=== PATIENT | female | born 1970 | race Two or more races ===

== ENCOUNTER 2021-10-16 13:18 | Emergency (ER) | payer MEDICAID ==
[~2021-10-16] VITALS: Ht 152.4 cm; Wt 90.3 kg
[2021-10-16 13:27] VITALS: BP 128/90
--- NOTE | 2021-10-16 13:30 | NUR ---
pt being assessed by medical student in [place]
[2021-10-16] MEDS ORDERED: NACL 0.9% 1,000 ML IV ONE (13:40)
[2021-10-16 14:06] LABS: BASOPHILS # (AUTO) 0.1 K/uL (0.00-0.22); BASOPHILS % (AUTO) 1.2 % (0.0-2.0); EOSINOPHILS # (AUTO) 0.1 K/uL (0-0.4); EOSINOPHILS % (AUTO) 1.3 % (0.0-4.0); HEMOGLOBIN 14.9 g/dL (12.0-16.0); LYMPHOCYTES # (AUTO) 2.1 K/uL (2.5-16.5); LYMPHOCYTES % (AUTO) 28.3 % (20.5-51.1); MEAN CORPUSCULAR HEMOGLOBIN 33 pg (27-31); MEAN CORPUSCULAR HGB CONC 35 g/dL (33-37); MONOCYTES # (AUTO) 0.4 K/uL (0.8-1.0); MONOCYTES % (AUTO) 5.7 % (1.7-9.3); NEUTROPHILS # (AUTO) 4.8 K/uL (1.8-7.7); NEUTROPHILS % (AUTO) 63.5 % (42.2-75.2); PLATELET COUNT (AUTO) 333 K/uL (140-450); RED BLOOD CELL COUNT(AUTO) 4.53 MIL/uL (4.20-5.40); RED CELL DISTRIBUTION WIDTH 12.9 % (11.6-13.7); WHITE BLOOD COUNT (AUTO) 7.6 K/uL (4.8-10.8)
--- NOTE | 2021-10-16 14:12 | NUR ---
51 y/o female, c/o throat and abd burning, general malaise, with high glucose for 3 days, states she has been taking her insulin every day. pt was at urgent care with glucose of 554, glucose now at 475. denies hematuria, dysuria, pelvic pain, urinary frequency and retention at this time. skin is pink/warm/dry. a&o x4 ambulates with assist due to general malaise. lungs clear bl, heart rate even and regular. pt denies any fever, cp, sob, or cough at this time. denies anyone sick in [facility] with same symptoms at this time. pt states pain is 10/10 at this time. patient. Ermd made aware of pt. pt states she has been going through a lot of at home stressors and states her medications for dm2 have not been working despite being complaint with them. abd pain worsens with eating, abd burning radiates up throat. pmh: ulcers, dm2, asthma, htn nka
[2021-10-16 14:55] LABS: ANION GAP 18.2 (8-16); CARBON DIOXIDE 23.5 mmol/L (21-32); CREATININE 0.8 mg/dL (0.6-1.3); POTASSIUM 4.7 mmol/L (3.5-5.1); TOTAL BILIRUBIN 0.5 mg/dL (0.0-1.0)
[2021-10-16] MEDS ORDERED: LACTATED RINGERS 1,000 ML IV ONE (16:35)
--- NOTE | 2021-10-16 17:32 | NUR ---
PT AMBULATED TO RESTROOM WITH STEADY GAIT
--- NOTE | 2021-10-16 17:50 | NUR ---
Patient appears to be resting comfortably in bed. Vital Signs within normal limits. Respirations even and unlabored. PT PROVIDED WITH WARM BLANKET
--- NOTE | 2021-10-16 18:16 | NUR ---
PT PROVIDED WITH URINE CUP BEDSIDE
[2021-10-16] MEDS ORDERED: INSULIN LANTUS 100 UNITS/ML 10 ML VIAL SUBQ ONE (18:25)
[2021-10-16] MEDS ORDERED: FAMOTIDINE 20 MG/2 ML VIAL IVP ONE (18:25)
[2021-10-16] MEDS ORDERED: ALUMINUM HYD/MAG/SIMETHICONE 30 ML UDC PO ONE (18:25)
[2021-10-16] MEDS ORDERED: ONDA-188 SL (19:05)
[2021-10-16] MEDS ORDERED: FAMO-90 PO (19:05)
[2021-10-16 19:24] VITALS: BP 128/80
--- NOTE | 2021-10-16 19:25 | NUR ---
Patient discharged with v/s stable. Written and verbal after care instructions given and explained. Patient alert, oriented and verbalized understanding of instructions. Ambulatory with and daughter to car. All questions addressed prior to discharge. ID band removed. Patient advised to follow up with PMD. Rx of famotidine, zofran (sent) given. Patient educated on indication of medication including possible reaction and side effects. Opportunity to ask questions provided and answered.
--- NOTE | 2021-10-23 14:53 | NUR ---
LATE ENTRY- NORMAL SALINE IV DISCONTINUED AT 192.
== END 2021-10-16 19:25 | disposition home or self-care (01) ==
LOC: MED 13:18
DX: K85.90 Acute pancreatitis without necrosis or infection, unspecified (principal); E11.65 Type 2 diabetes mellitus with hyperglycemia; I10 Essential (primary) hypertension; E78.5 Hyperlipidemia, unspecified; J45.909 Unspecified asthma, uncomplicated; Z98.890 Other specified postprocedural states; Z79.899 Other long term (current) drug therapy
CPT/HCPCS: 36415; 76705; 80053; 82009; 83690; 84484; 85025; 93005; 96360; 96361; 99285; J1815; J7030; J7120; Q0092

== ENCOUNTER 2022-09-17 14:46 | Emergency (ER) | payer MEDICAID ==
[~2022-09-17] VITALS: Ht 170.2 cm; Wt 63.5 kg
[~2022-09-17 14:46] MED LIST: FAMO-90 PO; ONDA-188 SL
--- NOTE | 2022-09-17 14:51 | NUR ---
PATIENT BIBA TO BED 7.
[2022-09-17 14:54] VITALS: BP 130/90
--- NOTE | 2022-09-17 15:02 | NUR ---
52 F PATIENT PRESENTS TO ED WITH HIGH BLOOD SUGAR. PT STATES FEELS DIZZY THIS MORNING AND WAS ABOUT TO FAINT. DENIES N/V/D; SKIN IS PINK/WARM/DRY; AAOX4 WITH EVEN AND STEADY GAIT; LUNGS CLEAR BL; HR EVEN AND REGULAR; PT DENIES ANY FEVER, CP, SOB, OR COUGH AT THIS TIME; PATIENT STATES HEADACHE OF 3/10 AT THIS TIME; VSS; PATIENT POSITIONED FOR COMFORT; HOB ELEVATED; BEDRAILS UP X2; BED DOWN. ER MD MADE AWARE OF PT STATUS. HX: DM, HTN, ASTHMA NKA MEDS: INSULIN AND METFORMIN
[2022-09-17] MEDS ORDERED: NACL 0.9% 1,000 ML IV ONE ×2 (15:05)
[2022-09-17 15:17] LABS: BASOPHILS # (AUTO) 0.1 K/uL (0.00-0.22); BASOPHILS % (AUTO) 0.6 % (0.0-2.0); EOSINOPHILS % (AUTO) 0.4 % (0.0-4.0); HEMATOCRIT 41.1 % (36-48); HEMOGLOBIN 13.9 g/dL (12.0-16.0); MEAN CORPUSCULAR HEMOGLOBIN 33 pg (27-31); MEAN CORPUSCULAR HGB CONC 34 g/dL (33-37); MEAN CORPUSCULAR VOLUME 97.4 fL (80-94); MONOCYTES # (AUTO) 0.5 K/uL (0.8-1.0); MONOCYTES % (AUTO) 5.2 % (1.7-9.3); NEUTROPHILS # (AUTO) 6.3 K/uL (1.8-7.7); NEUTROPHILS % (AUTO) 70.8 % (42.2-75.2); PLATELET COUNT (AUTO) 341 K/uL (140-450); RED BLOOD CELL COUNT(AUTO) 4.22 MIL/uL (4.20-5.40); RED CELL DISTRIBUTION WIDTH 12.6 % (11.6-13.7); WHITE BLOOD COUNT (AUTO) 8.9 K/uL (4.8-10.8)
[2022-09-17 15:48] LABS: ACETONE, SERUM SMALL (NEGATIVE)
[2022-09-17] MEDS ORDERED: KETOROLAC 15 MG/ML VIAL IVP ONE (15:50)
[2022-09-17 16:02] LABS: ALBUMIN 3.1 g/dL (3.4-5.0); ANION GAP 18.2 (8-16); ASPARTATE AMINOTRANSFERASE 10 U/L (15-37); CARBON DIOXIDE 23.7 mmol/L (21-32); CHLORIDE 97 mmol/L (98-107); CREATININE 0.9 mg/dL (0.6-1.3); GFR ARICAN-AMERICAN 84 mL/min (>90); POTASSIUM 4.9 mmol/L (3.5-5.1); SODIUM SERUM 134 mmol/L (136-145); TOTAL BILIRUBIN 0.4 mg/dL (0.0-1.0); UREA NITROGEN, BLOOD 20 mg/dL (7-18)
[2022-09-17 16:10] LABS: GLUCOSE 561 mg/dL (74-106)
[2022-09-17] MEDS ORDERED: INSULIN REGULAR, HUMAN 100 UNIT/ML VIAL SUBQ ONE (16:55)
--- NOTE | 2022-09-17 18:30 | NUR ---
ER AT BEDSIDE
[2022-09-17 18:50] VITALS: BP 144/51
--- NOTE | 2022-09-17 18:52 | NUR ---
ENDORSED DISCHARGE INSTRUCTIONS TO PATIENT. PT VERBALIZED UNDERSTANDING AND SIGNED DISCHARGE FORMS. AWAITING FOR FAMILY TO PICK PATIENT UP.
[2022-09-17 19:04] LABS: APPEARANCE,URINE CLEAR (CLEAR); BILIRUBIN,URINE NEGATIVE (NEGATIVE); BLOOD, URINE NEGATIVE (NEGATIVE); COLOR,URINE YELLOW (YELLOW); LEUKOCYTE ESTERASE ,URINE NEGATIVE (NEGATIVE); NITRITE, URINE NEGATIVE (NEGATIVE); PH,URINE 5.5 (5.0-9.0); UGLUCOSE 3+ (NEGATIVE)
--- NOTE | 2022-09-17 19:28 | NUR ---
PATIENT DISCHARGED OFF THE UNIT. PT WAS STABLE
== END 2022-09-17 19:28 | disposition home or self-care (01) ==
LOC: MED 14:46
DX: E11.65 Type 2 diabetes mellitus with hyperglycemia (principal); R42 Dizziness and giddiness; J45.909 Unspecified asthma, uncomplicated; I10 Essential (primary) hypertension; Z91.14 Patient's other noncompliance with medication regimen; Z89.029 Acquired absence of unspecified finger(s); Z79.899 Other long term (current) drug therapy
CPT/HCPCS: 36415; 80053; 81003; 82009; 85025; 96361; 96365; 96372; 99284; J1815; J1885

== ENCOUNTER 2023-09-16 12:23 | Inpatient (IN) | payer MEDICAID ==
[2023-09-16] VITALS (8 sets, daily range): BP systolic 136–146; BP diastolic 69–84; PULSE 74–102; RESP 22–29; TEMP 95.5–97.8; O2SAT 95–100
[~2023-09-16] VITALS: Ht 165.1 cm; Wt 55.3 kg
[2023-09-16] MEDS ORDERED: NACL 0.9% 1,000 ML IV ONE ×2 (12:45→14:05)
[2023-09-16] MEDS ORDERED: PANTOPRAZOLE 40 MG INJ VIAL IVP ONE (13:20)
[2023-09-16 13:44] LABS: BASOPHILS # (AUTO) 0.1 K/uL (0.00-0.22); BASOPHILS % (AUTO) 0.5 % (0.0-2.0); EOSINOPHILS % (AUTO) 0.1 % (0.0-4.0); HEMATOCRIT 46.9 % (36-48); HEMOGLOBIN 15.4 g/dL (12.0-16.0); LYMPHOCYTES # (AUTO) 2.2 K/uL (2.5-16.5); LYMPHOCYTES % (AUTO) 14.7 % (20.5-51.1); MEAN CORPUSCULAR HEMOGLOBIN 34 pg (27-31); MEAN CORPUSCULAR HGB CONC 33 g/dL (33-37); MEAN CORPUSCULAR VOLUME 101.9 fL (80-94); MONOCYTES # (AUTO) 0.9 K/uL (0.8-1.0); MONOCYTES % (AUTO) 6.1 % (1.7-9.3); NEUTROPHILS # (AUTO) 11.5 K/uL (1.8-7.7); NEUTROPHILS % (AUTO) 78.6 % (42.2-75.2); PLATELET COUNT (AUTO) 395 K/uL (140-450); RED BLOOD CELL COUNT(AUTO) 4.61 MIL/uL (4.20-5.40); RED CELL DISTRIBUTION WIDTH 13.6 % (11.6-13.7); WHITE BLOOD COUNT (AUTO) 14.6 K/uL (4.8-10.8)
[2023-09-16 14:09] LABS: ANION GAP 34.5 (8-16); CALCIUM 10.5 mg/dL (8.5-10.1)
[2023-09-16 14:17] LABS: CARBON DIOXIDE 6.5 mmol/L (21-32)
[2023-09-16] MEDS ORDERED: INSULIN REGULAR, HUMAN 100 UNIT in NACL 0.9% 100 ML IV SCH ×6 (14:30→19:40)
[2023-09-16 14:34] LABS: BILIRUBIN,URINE 1+ (NEGATIVE); BLOOD, URINE TRACE-I (NEGATIVE); COLOR,URINE YELLOW (YELLOW); LEUKOCYTE ESTERASE ,URINE NEGATIVE (NEGATIVE); NITRITE, URINE NEGATIVE (NEGATIVE); PROTEIN,URINE 2+ (NEGATIVE); UGLUCOSE 2+ (NEGATIVE); UROBILINOGEN,URINE 0.2 EU/dL (0.2 - 1)
[2023-09-16 14:35] LABS: APPEARANCE,URINE SLIGHTLY HAZY (CLEAR)
[2023-09-16 14:48] LABS: ICTOTEST NEGATIVE (NEGATIVE)
[2023-09-16 14:50] LABS: BACTERIA,URINE FEW /HPF (None Seen); RBC,URINE 0-5 /HPF (0-5); SQUAMOUS EPITHELIAL CELL,UR 0-3 (FEW) /LPF (0-3 (FEW)); WBC,URINE 0-5 /HPF (0-5)
[2023-09-16 14:59] LABS: ALBUMIN 3.3 g/dL (3.4-5.0); BILIRUBIN,DIRECT 0.1 mg/dL (0.0-0.3); TOTAL BILIRUBIN 1.2 mg/dL (0.0-1.0); TOTAL PROTEIN, SERUM 10.1 g/dL (6.4-8.2)
[2023-09-16 15:06] LABS: FLU A ANTIGEN negative (NEGATIVE); FLU B ANTIGEN NEGATIVE (NEGATIVE)
[2023-09-16] MEDS ORDERED: ACETAMINOPHEN 325 MG TAB PO PRN (16:05)
[2023-09-16] MEDS ORDERED: MORPHINE SULFATE 2 MG/ML SYR IVP PRN (16:05)
[2023-09-16] MEDS ORDERED: ONDANSETRON 4 MG/2 ML VIAL IVP PRN (16:05)
[2023-09-16] MEDS ORDERED: HYDROcodone/APAP 5/325 MG 1 TAB TAB PO PRN (16:05)
[2023-09-16] MEDS ORDERED: LORazepam 1 MG TAB PO PRN (16:10)
[2023-09-16] MEDS ORDERED: DEXTROSE 50% 50 ML SYR IVP PRN ×2 (16:10→19:40)
[2023-09-16] MEDS: BLOOD GLUCOSE MONITORING 1 DEV DEV FS SCH ×8 (16:10→23:13)
[2023-09-16] MEDS ORDERED: POTASSIUM CHLORIDE 10 MEQ TABER PO PRN (16:15)
[2023-09-16] MEDS ORDERED: hydrALAZINE 20 MG/ML VIAL IVP PRN (16:15)
[2023-09-16] MEDS: NACL 0.9% 1,000 ML IV SCH ×3 (16:34→20:00)
[2023-09-16] MEDS ORDERED: cefTRIAXone 1,000 MG VIAL ONE (17:49)
[2023-09-16] MEDS: DEXT 5% / NACL 0.45% 1,000 ML IV SCH ×3 (19:40→23:16)
[2023-09-16] MEDS ORDERED: BLOOD GLUCOSE MONITORING 1 DEV DEV FS SCH (19:40)
[2023-09-16] MEDS: PANTOPRAZOLE 40 MG INJ VIAL IVP SCH (20:23)
[2023-09-16 21:00] LABS: CALCIUM 9.3 mg/dL (8.5-10.1); CREATININE 0.8 mg/dL (0.6-1.3); POTASSIUM 4.5 mmol/L (3.5-5.1)
[2023-09-16 21:01] LABS: PHOSPHORUS 3.1 mg/dL (2.5-4.9)
[2023-09-16 21:03] LABS: CARBON DIOXIDE 5.5 mmol/L (21-32)
[2023-09-17] VITALS (26 sets, daily range): BP systolic 115–146; BP diastolic 57–76; PULSE 60–105; RESP 13–25; TEMP 97.7–98.7; O2SAT 98–100
[2023-09-17] MEDS: BLOOD GLUCOSE MONITORING 1 DEV DEV FS SCH ×24 (00:14→23:18)
[2023-09-17 00:34] LABS: ANION GAP 23.8 (8-16); CREATININE 0.7 mg/dL (0.6-1.3); POTASSIUM 4.3 mmol/L (3.5-5.1)
[2023-09-17 00:38] LABS: CARBON DIOXIDE 6.5 mmol/L (21-32)
[2023-09-17] MEDS: NACL 0.9% 1,000 ML IV SCH ×3 (00:40→06:32)
[2023-09-17] MEDS: DEXT 5% / NACL 0.45% 1,000 ML IV SCH ×3 (00:40→08:33)
[2023-09-17 04:33] LABS: BASOPHILS % (AUTO) 0.2 % (0.0-2.0); EOSINOPHILS % (AUTO) 0.1 % (0.0-4.0); HEMATOCRIT 36.1 % (36-48); HEMOGLOBIN 12.3 g/dL (12.0-16.0); LYMPHOCYTES # (AUTO) 1.8 K/uL (2.5-16.5); LYMPHOCYTES % (AUTO) 17.2 % (20.5-51.1); MEAN CORPUSCULAR HEMOGLOBIN 33 pg (27-31); MEAN CORPUSCULAR HGB CONC 34 g/dL (33-37); MONOCYTES # (AUTO) 1.2 K/uL (0.8-1.0); MONOCYTES % (AUTO) 11.2 % (1.7-9.3); NEUTROPHILS # (AUTO) 7.4 K/uL (1.8-7.7); NEUTROPHILS % (AUTO) 71.3 % (42.2-75.2); PLATELET COUNT (AUTO) 294 K/uL (140-450); RED BLOOD CELL COUNT(AUTO) 3.73 MIL/uL (4.20-5.40); RED CELL DISTRIBUTION WIDTH 12.9 % (11.6-13.7); WHITE BLOOD COUNT (AUTO) 10.4 K/uL (4.8-10.8)
[2023-09-17 04:51] LABS: ANION GAP 18.6 (8-16); CALCIUM 8.6 mg/dL (8.5-10.1); CARBON DIOXIDE 9.8 mmol/L (21-32); CREATININE 0.6 mg/dL (0.6-1.3); POTASSIUM 3.4 mmol/L (3.5-5.1)
[2023-09-17 06:11] LABS: MAGNESIUM 1.6 mg/dL (1.8-2.4)
[2023-09-17 06:12] LABS: PHOSPHORUS 0.9 mg/dL (2.5-4.9)
[2023-09-17] MEDS ORDERED: KCL 20 MEQ IN 100 mL PREMIX 100 ML IV PRN (06:55)
[2023-09-17] MEDS ORDERED: MAG SULF 2000 MG/WATER PREMIX 50 ML IV SCH (07:50)
[2023-09-17] MEDS: PANTOPRAZOLE 40 MG INJ VIAL IVP SCH ×2 (08:35→21:01)
[2023-09-17 08:43] LABS: ANION GAP 15.4 (8-16); CALCIUM 8.5 mg/dL (8.5-10.1); CARBON DIOXIDE 11.6 mmol/L (21-32); CREATININE 0.6 mg/dL (0.6-1.3)
[2023-09-17 12:19] LABS: ANION GAP 16.4 (8-16); CALCIUM 8.4 mg/dL (8.5-10.1); CREATININE 0.6 mg/dL (0.6-1.3); POTASSIUM 3.4 mmol/L (3.5-5.1)
[2023-09-17] MEDS: POTASSIUM CHL 40 MEQ/ D5-1/2NS 1,000 ML IV SCH ×3 (12:43→22:00)
[2023-09-17] MEDS: POTASSIUM CHLORIDE 40 MEQ in NACL 0.9% 1,000 ML IV SCH (13:35)
[2023-09-17 17:28] LABS: ANION GAP 13.6 (8-16); CALCIUM 8.2 mg/dL (8.5-10.1); CARBON DIOXIDE 13.8 mmol/L (21-32); CREATININE 0.4 mg/dL (0.6-1.3); POTASSIUM 3.4 mmol/L (3.5-5.1)
[2023-09-17 17:32] LABS: MAGNESIUM 1.8 mg/dL (1.8-2.4)
[2023-09-17 17:33] LABS: PHOSPHORUS 0.6 mg/dL (2.5-4.9)
[2023-09-17] MEDS ORDERED: POTASSIUM PHOSPHATE 30 MM in NACL 0.9% 500 ML IV SCH (18:30)
[2023-09-17] MEDS ORDERED: Z-GUARD PASTE TP ONE (19:39)
[2023-09-17] MEDS ORDERED: POTASSIUM CHLORIDE IV SCH (19:40)
[2023-09-17] MEDS ORDERED: NACL 0.45% IV SCH (19:40)
[2023-09-17] MEDS ORDERED: DEXT 5% IV SCH (19:40)
[2023-09-17] MEDS ORDERED: Z-GUARD PASTE TP PRN (20:00)
[2023-09-17 21:40] LABS: CALCIUM 8.6 mg/dL (8.5-10.1); CARBON DIOXIDE 15.4 mmol/L (21-32); CREATININE 0.5 mg/dL (0.6-1.3); POTASSIUM 3.4 mmol/L (3.5-5.1)
[2023-09-17 21:45] LABS: MAGNESIUM 1.7 mg/dL (1.8-2.4)
[2023-09-17 22:14] LABS: PHOSPHORUS 0.9 mg/dL (2.5-4.9)
[2023-09-17] MEDS: MAG SULF 2000 MG/WATER PREMIX 50 ML IV PRN (23:52)
[2023-09-18] VITALS (26 sets, daily range): BP systolic 115–151; BP diastolic 47–87; PULSE 84–104; RESP 14–24; TEMP 97.5–98.7; O2SAT 97–100
[2023-09-18] MEDS: BLOOD GLUCOSE MONITORING 1 DEV DEV FS SCH ×22 (00:16→21:24)
[2023-09-18 00:33] LABS: ANION GAP 11.5 (8-16); CALCIUM 8.5 mg/dL (8.5-10.1); CARBON DIOXIDE 18.2 mmol/L (21-32); CREATININE 0.4 mg/dL (0.6-1.3); POTASSIUM 3.7 mmol/L (3.5-5.1)
[2023-09-18 00:36] LABS: MAGNESIUM 1.7 mg/dL (1.8-2.4)
[2023-09-18] MEDS: POTASSIUM CHLORIDE 40 MEQ in NACL 0.9% 1,000 ML IV SCH ×4 (00:46→18:31)
[2023-09-18] MEDS: POTASSIUM CHL 40 MEQ/ D5-1/2NS 1,000 ML IV SCH ×4 (02:05→21:35)
[2023-09-18 04:23] LABS: BASOPHILS % (AUTO) 0.5 % (0.0-2.0); HEMATOCRIT 37.2 % (36-48); HEMOGLOBIN 12.9 g/dL (12.0-16.0); LYMPHOCYTES # (AUTO) 2.2 K/uL (2.5-16.5); LYMPHOCYTES % (AUTO) 25.4 % (20.5-51.1); MEAN CORPUSCULAR HEMOGLOBIN 33 pg (27-31); MEAN CORPUSCULAR HGB CONC 35 g/dL (33-37); MEAN CORPUSCULAR VOLUME 95.6 fL (80-94); MONOCYTES % (AUTO) 11.8 % (1.7-9.3); NEUTROPHILS # (AUTO) 5.5 K/uL (1.8-7.7); NEUTROPHILS % (AUTO) 62.3 % (42.2-75.2); PLATELET COUNT (AUTO) 274 K/uL (140-450); RED BLOOD CELL COUNT(AUTO) 3.89 MIL/uL (4.20-5.40); RED CELL DISTRIBUTION WIDTH 12.5 % (11.6-13.7); WHITE BLOOD COUNT (AUTO) 8.8 K/uL (4.8-10.8)
[2023-09-18 04:47] LABS: ANION GAP 14.4 (8-16); CALCIUM 8.3 mg/dL (8.5-10.1); CARBON DIOXIDE 15.6 mmol/L (21-32); CREATININE 0.5 mg/dL (0.6-1.3)
[2023-09-18 04:52] LABS: MAGNESIUM 2.2 mg/dL (1.8-2.4); PHOSPHORUS 1.6 mg/dL (2.5-4.9)
[2023-09-18] MEDS: PANTOPRAZOLE 40 MG INJ VIAL IVP SCH ×2 (08:37→21:15)
[2023-09-18 09:35] LABS: PHOSPHORUS 1.5 mg/dL (2.5-4.9)
[2023-09-18 09:43] LABS: ANION GAP 14.4 (8-16); CALCIUM 8.2 mg/dL (8.5-10.1); CARBON DIOXIDE 15.5 mmol/L (21-32); CREATININE 0.4 mg/dL (0.6-1.3); POTASSIUM 3.9 mmol/L (3.5-5.1)
[2023-09-18] MEDS ORDERED: POTASSIUM PHOSPHATE 15 MM in NACL 0.9% 250 ML IV SCH (10:00)
[2023-09-18 14:31] LABS: MAGNESIUM 1.8 mg/dL (1.8-2.4)
[2023-09-18 14:34] LABS: ANION GAP 14.3 (8-16); CARBON DIOXIDE 17.8 mmol/L (21-32); POTASSIUM 4.1 mmol/L (3.5-5.1)
[2023-09-18 14:35] LABS: CALCIUM 8.5 mg/dL (8.5-10.1); CREATININE 0.5 mg/dL (0.6-1.3)
[2023-09-18 16:15] LABS: ANION GAP 11.1 (8-16); CALCIUM 8.3 mg/dL (8.5-10.1); CREATININE 0.5 mg/dL (0.6-1.3); POTASSIUM 4.1 mmol/L (3.5-5.1)
[2023-09-18 16:19] LABS: MAGNESIUM 1.7 mg/dL (1.8-2.4); PHOSPHORUS 1.9 mg/dL (2.5-4.9)
[2023-09-18] MEDS: MAG SULF 2000 MG/WATER PREMIX 50 ML IV PRN (17:38)
[2023-09-18 21:31] LABS: ANION GAP 12.5 (8-16); CALCIUM 8.7 mg/dL (8.5-10.1); CARBON DIOXIDE 19.6 mmol/L (21-32); CREATININE 0.5 mg/dL (0.6-1.3); POTASSIUM 4.1 mmol/L (3.5-5.1)
[2023-09-18 21:54] LABS: MAGNESIUM 2.1 mg/dL (1.8-2.4); PHOSPHORUS 1.7 mg/dL (2.5-4.9)
[2023-09-18] MEDS: NACL 0.9% 1,000 ML IV SCH (23:00)
[2023-09-19] VITALS (21 sets, daily range): BP systolic 105–172; BP diastolic 43–75; PULSE 93–124; RESP 12–25; TEMP 97.2–98.9; O2SAT 96–99
[2023-09-19 05:06] LABS: BASOPHILS # (AUTO) 0.1 K/uL (0.00-0.22); EOSINOPHILS % (AUTO) 0.3 % (0.0-4.0); HEMATOCRIT 35.8 % (36-48); HEMOGLOBIN 12.7 g/dL (12.0-16.0); LYMPHOCYTES # (AUTO) 2.3 K/uL (2.5-16.5); LYMPHOCYTES % (AUTO) 29.2 % (20.5-51.1); MEAN CORPUSCULAR HEMOGLOBIN 33 pg (27-31); MEAN CORPUSCULAR HGB CONC 35 g/dL (33-37); MEAN CORPUSCULAR VOLUME 94.2 fL (80-94); MONOCYTES % (AUTO) 12.9 % (1.7-9.3); NEUTROPHILS # (AUTO) 4.5 K/uL (1.8-7.7); NEUTROPHILS % (AUTO) 56.6 % (42.2-75.2); PLATELET COUNT (AUTO) 286 K/uL (140-450)
[2023-09-19 05:19] LABS: ANION GAP 15.1 (8-16); CALCIUM 8.4 mg/dL (8.5-10.1); CARBON DIOXIDE 17.2 mmol/L (21-32); CREATININE 0.5 mg/dL (0.6-1.3); POTASSIUM 4.3 mmol/L (3.5-5.1)
[2023-09-19] MEDS: BLOOD GLUCOSE MONITORING 1 DEV DEV FS SCH ×3 (07:22→17:19)
[2023-09-19] MEDS: INSULIN LISPRO SLIDING SCALE 100 UNITS/ML VIAL SUBQ PRN ×3 (07:27→17:18)
[2023-09-19] MEDS: PANTOPRAZOLE 40 MG INJ VIAL IVP SCH (08:09)
[2023-09-19] MEDS ORDERED: INSULIN LANTUS 100 UNITS/ML 10 ML VIAL SUBQ SCH (09:00)
[2023-09-19] MEDS ORDERED: [UNRECOGNIZED DRUG - CODE] MC (16:55)
[2023-09-19] MEDS ORDERED: LANTUS SUBQ (16:55)
[2023-09-19] MEDS: NACL 0.9% 1,000 ML IV SCH (17:50)
== END 2023-09-19 18:50 | disposition home or self-care (01) | DRG 420 ==
LOC: MED 12:23 → MMU 16:05 → MIC 17:50
PROVIDERS: ADMIT Family Medicine; ATTEND Family Medicine
PROC: 5A09357 Assistance with Respiratory Ventilation, Less than 24 Consecutive Hours, Continuous Positive Airway Pressure (ICD-10-PCS; principal; 2023-09-17)
DX: E11.10 Type 2 diabetes mellitus with ketoacidosis without coma (principal); G93.41 Metabolic encephalopathy; E44.0 Moderate protein-calorie malnutrition; E87.6 Hypokalemia; E86.0 Dehydration; R65.10 Systemic inflammatory response syndrome (SIRS) of non-infectious origin without acute organ dysfunction; I10 Essential (primary) hypertension; E78.5 Hyperlipidemia, unspecified; Z20.822 Contact with and (suspected) exposure to COVID-19; J45.909 Unspecified asthma, uncomplicated; Z91.199 Patient's noncompliance with other medical treatment and regimen due to unspecified reason; Z68.20 Body mass index [BMI] 20.0-20.9, adult
CPT/HCPCS: 36415; 71045; 80048; 80076; 81001; 82150; 82803; 82948; 83036; 83690; 83735; 84100; 85025; 86886; 86900; 86901; 87081; 96361; 96374; 99291; C9113; J0696; J1815; J2270; J3475; J3480; J7030; J7060

== ENCOUNTER 2024-03-16 20:59 | Inpatient (IN) | payer MEDICAID ==
[~2024-03-16] VITALS: Ht 152.4 cm; Wt 59.0 kg
[~2024-03-16 20:59] MED LIST changes: +LANTUS SUBQ; +[UNRECOGNIZED DRUG - CODE] MC
[2024-03-16 21:02] VITALS: BP 155/88; PULSE 88; RESP 16; TEMP 97.4; O2SAT 99
[2024-03-16] MEDS: KETOROLAC 30 MG/ML VIAL IVP ONE (21:20)
[2024-03-16 21:54] LABS: BASOPHILS % (AUTO) 0.8 % (0.0-2.0); EOSINOPHILS # (AUTO) 0.1 K/uL (0-0.4); EOSINOPHILS % (AUTO) 1.1 % (0.0-4.0); HEMATOCRIT 42.6 % (36-48); HEMOGLOBIN 14.8 g/dL (12.0-16.0); LYMPHOCYTES # (AUTO) 2.8 K/uL (2.5-16.5); MEAN CORPUSCULAR HEMOGLOBIN 33 pg (27-31); MEAN CORPUSCULAR HGB CONC 35 g/dL (33-37); MEAN CORPUSCULAR VOLUME 96.1 fL (80-94); MONOCYTES # (AUTO) 0.5 K/uL (0.8-1.0); MONOCYTES % (AUTO) 8.5 % (1.7-9.3); NEUTROPHILS # (AUTO) 2.9 K/uL (1.8-7.7); NEUTROPHILS % (AUTO) 45.6 % (42.2-75.2); PLATELET COUNT (AUTO) 270 K/uL (140-450); RED BLOOD CELL COUNT(AUTO) 4.43 MIL/uL (4.20-5.40); RED CELL DISTRIBUTION WIDTH 13.6 % (11.6-13.7); WHITE BLOOD COUNT (AUTO) 6.5 K/uL (4.8-10.8)
[2024-03-16 22:08] LABS: ANION GAP 12.8 (8-16); CALCIUM 8.5 mg/dL (8.5-10.1); CARBON DIOXIDE 25.7 mmol/L (21-32); CREATININE 0.6 mg/dL (0.6-1.3); POTASSIUM 3.5 mmol/L (3.5-5.1)
[2024-03-16 22:09] VITALS: O2SAT 98
[2024-03-16 22:17] LABS: ALANINE AMINOTRANSFERASE 17 U/L (12-78); ALBUMIN 3.2 g/dL (3.4-5.0); ALKALINE PHOSPHATASE 76 U/L (50-136); ASPARTATE AMINOTRANSFERASE 8 U/L (15-37); BILIRUBIN,DIRECT 0.2 mg/dL (0.0-0.3); LIPASE 97 U/L (16-77); TOTAL BILIRUBIN 0.6 mg/dL (0.0-1.0)
[2024-03-16] MEDS: NACL 0.9% 1,000 ML IV ONE (22:26)
[2024-03-16] MEDS ORDERED: MORPHINE SULFATE 4 MG/ML SYR ONE (23:27)
[2024-03-16] MEDS ORDERED: KETOROLAC 30 MG/ML VIAL ONE (23:32)
[2024-03-16] MEDS ORDERED: ACETAMINOPHEN EXTRA STRENGTH 500 MG TAB ONE (23:47)
[2024-03-16] MEDS: ACETAMINOPHEN EXTRA STRENGTH 500 MG TAB PO ONE (23:48)
[2024-03-17] VITALS (7 sets, daily range): BP systolic 97–117; BP diastolic 60–71; PULSE 89–103; RESP 14–18; TEMP 97.8–98; O2SAT 97–100
[2024-03-17 01:13] LABS: APPEARANCE,URINE HAZY (CLEAR); COLOR,URINE YELLOW (YELLOW); UGLUCOSE >=1000 (NEGATIVE)
[2024-03-17 01:14] LABS: BILIRUBIN,URINE NEGATIVE (NEGATIVE)
[2024-03-17 01:15] LABS: BLOOD, URINE NEGATIVE (NEGATIVE)
[2024-03-17 01:16] LABS: LEUKOCYTE ESTERASE ,URINE NEGATIVE (NEGATIVE); NITRITE, URINE NEGATIVE (NEGATIVE); PROTEIN,URINE NEGATIVE (NEGATIVE); UROBILINOGEN,URINE 0.2 EU/dL (0.2 - 1)
[2024-03-17 01:23] LABS: AMPHETAMINE, URINE NEGATIVE ng/ml (NEG <=1000); BARBITURATE, URINE NEGATIVE ng/ml (NEG <=200); BENZODIAZEPINE, URINE NEGATIVE ng/mL (NEG <=200); CANNABINOID, URINE NEGATIVE ng/mL (NEG <=50); COCAINE, URINE NEGATIVE ng/mL (NEG <=300); OPIATE, URINE NEGATIVE ng/mL (NEG <=2000); PHENCYCLIDINE SCREEN,URINE NEGATIVE ng/mL (NEG <=25)
[2024-03-17] MEDS: MECLIZINE 25 MG TAB PO ONE (03:10)
[2024-03-17] MEDS ORDERED: MORPHINE SULFATE 2 MG/ML SYR IVP PRN (06:20)
[2024-03-17] MEDS ORDERED: DEXTROSE 50% 50 ML SYR IVP PRN (06:25)
[2024-03-17] MEDS: BLOOD GLUCOSE MONITORING 1 DEV DEV FS SCH (07:35)
[2024-03-17] MEDS: INSULIN LISPRO SLIDING SCALE 100 UNITS/ML VIAL SUBQ PRN (07:40)
[2024-03-17] MEDS: ASPIRIN 325 MG TABEC PO SCH (10:02)
[2024-03-17] MEDS: HYDROcodone/APAP 5/325 MG 1 TAB TAB PO PRN (10:04)
[2024-03-17] MEDS: ENOXAPARIN 40 MG/0.4 ML SYR SUBQ SCH (10:06)
[2024-03-17] MEDS: INSULIN LANTUS 100 UNITS/ML 10 ML VIAL SUBQ SCH (10:07)
[2024-03-17] MEDS: ACETAMINOPHEN 325 MG TAB PO PRN (21:05)
[2024-03-18] VITALS (7 sets, daily range): BP systolic 90–120; BP diastolic 56–68; PULSE 84–99; RESP 17–18; TEMP 97–97.9; O2SAT 96–100
[2024-03-18 05:44] LABS: ALBUMIN 2.8 g/dL (3.4-5.0); ANION GAP 11.9 (8-16); CALCIUM 8.7 mg/dL (8.5-10.1); CARBON DIOXIDE 27.2 mmol/L (21-32); CREATININE 0.5 mg/dL (0.6-1.3); MAGNESIUM 1.9 mg/dL (1.8-2.4); PHOSPHORUS 4.1 mg/dL (2.5-4.9); POTASSIUM 3.1 mmol/L (3.5-5.1); TOTAL BILIRUBIN 0.5 mg/dL (0.0-1.0); TOTAL PROTEIN, SERUM 6.1 g/dL (6.4-8.2)
[2024-03-18 07:55] LABS: BASOPHILS % (AUTO) 0.6 % (0.0-2.0); EOSINOPHILS # (AUTO) 0.1 K/uL (0-0.4); EOSINOPHILS % (AUTO) 1.4 % (0.0-4.0); HEMOGLOBIN 14.3 g/dL (12.0-16.0); LYMPHOCYTES # (AUTO) 3.3 K/uL (2.5-16.5); LYMPHOCYTES % (AUTO) 51.8 % (20.5-51.1); MEAN CORPUSCULAR HEMOGLOBIN 33 pg (27-31); MEAN CORPUSCULAR HGB CONC 35 g/dL (33-37); MEAN CORPUSCULAR VOLUME 94.7 fL (80-94); MONOCYTES # (AUTO) 0.6 K/uL (0.8-1.0); MONOCYTES % (AUTO) 8.9 % (1.7-9.3); NEUTROPHILS # (AUTO) 2.3 K/uL (1.8-7.7); NEUTROPHILS % (AUTO) 37.3 % (42.2-75.2); PLATELET COUNT (AUTO) 256 K/uL (140-450); RED BLOOD CELL COUNT(AUTO) 4.33 MIL/uL (4.20-5.40); RED CELL DISTRIBUTION WIDTH 13.7 % (11.6-13.7); WHITE BLOOD COUNT (AUTO) 6.3 K/uL (4.8-10.8)
[2024-03-18] MEDS: lisinopriL 20 MG TAB PO SCH (08:17)
[2024-03-18] MEDS: POTASSIUM CHLORIDE 10 MEQ TABER PO SCH (17:11)
[2024-03-19] VITALS: BP 94/52; PULSE 91; PULSE 96; RESP 18; TEMP 98.7; O2SAT 97
[2024-03-19 04:00] VITALS: BP 100/54; PULSE 60; PULSE 90; RESP 19; TEMP 98.1; O2SAT 94
[2024-03-19 05:43] LABS: BASOPHILS % (AUTO) 0.8 % (0.0-2.0); EOSINOPHILS # (AUTO) 0.1 K/uL (0-0.4); EOSINOPHILS % (AUTO) 1.5 % (0.0-4.0); HEMATOCRIT 40.3 % (36-48); HEMOGLOBIN 13.6 g/dL (12.0-16.0); LYMPHOCYTES # (AUTO) 3.1 K/uL (2.5-16.5); LYMPHOCYTES % (AUTO) 50.4 % (20.5-51.1); MEAN CORPUSCULAR HEMOGLOBIN 32 pg (27-31); MEAN CORPUSCULAR HGB CONC 34 g/dL (33-37); MEAN CORPUSCULAR VOLUME 95.9 fL (80-94); MONOCYTES # (AUTO) 0.6 K/uL (0.8-1.0); MONOCYTES % (AUTO) 9.6 % (1.7-9.3); NEUTROPHILS # (AUTO) 2.3 K/uL (1.8-7.7); NEUTROPHILS % (AUTO) 37.7 % (42.2-75.2); PLATELET COUNT (AUTO) 248 K/uL (140-450); RED BLOOD CELL COUNT(AUTO) 4.21 MIL/uL (4.20-5.40); RED CELL DISTRIBUTION WIDTH 13.8 % (11.6-13.7); WHITE BLOOD COUNT (AUTO) 6.1 K/uL (4.8-10.8)
[2024-03-19 05:58] LABS: ANION GAP 12.9 (8-16); CALCIUM 8.7 mg/dL (8.5-10.1); CARBON DIOXIDE 25.5 mmol/L (21-32); CREATININE 0.4 mg/dL (0.6-1.3); POTASSIUM 4.4 mmol/L (3.5-5.1)
[2024-03-19 08:00] VITALS: BP 99/71; PULSE 89; PULSE 90; RESP 17; RESP 18; TEMP 97.4; O2SAT 98
[2024-03-19 12:00] VITALS: BP 100/78; PULSE 88; PULSE 90; RESP 18; TEMP 97.6; O2SAT 100
[2024-03-19] MEDS ORDERED: INSU100S22 SUBQ (12:18)
[2024-03-19 12:26] VITALS: BP 100/78; PULSE 89; RESP 18; TEMP 97.6
== END 2024-03-19 13:12 | disposition home or self-care (01) | DRG 203 ==
LOC: MED 20:59 → MTU 03-17 06:21
PROVIDERS: ADMIT Student in an Organized Health Care Education/Training Program; ATTEND Student in an Organized Health Care Education/Training Program
DX: M94.0 Chondrocostal junction syndrome [Tietze] (principal); E43 Unspecified severe protein-calorie malnutrition; E11.65 Type 2 diabetes mellitus with hyperglycemia; I10 Essential (primary) hypertension; G43.909 Migraine, unspecified, not intractable, without status migrainosus; J45.909 Unspecified asthma, uncomplicated; E78.5 Hyperlipidemia, unspecified; Z79.4 Long term (current) use of insulin; Z79.899 Other long term (current) drug therapy; Z79.82 Long term (current) use of aspirin; Z68.25 Body mass index [BMI] 25.0-25.9, adult
CPT/HCPCS: 36415; 70450; 71045; 80048; 80053; 80076; 80305; 81003; 82948; 83690; 83735; 84100; 84484; 85025; 87081; 93005; 96361; 96374; 99285; J1650; J1815; J1885; J2270; J8597